=== PATIENT | female | born 1995 | race Two or more races ===

== ENCOUNTER 2021-03-08 03:41 | Emergency (ER) | payer MEDICAID ==
[~2021-03-08] VITALS: Ht 160 cm; Wt 94.9 kg
[2021-03-08 07:09] VITALS: BP 111/70
== END 2021-03-08 07:53 | disposition home or self-care (01) ==
LOC: ED 07:44
DX: U07.1 COVID-19 (principal); J12.82 Pneumonia due to coronavirus disease 2019; R05 Cough; R00.0 Tachycardia, unspecified
CPT/HCPCS: 71045; 93005; 96361; 96374; 99283; J1100; J2060; J7030

== ENCOUNTER 2021-03-09 05:34 | Inpatient (IN) | payer MEDICAID ==
[~2021-03-09] VITALS: Ht 160 cm; Wt 103.8 kg
--- NOTE | 2021-03-09 05:54 | NUR ---
PT PRESENTS TO ER WITH MOTHER AT BEDSIDE, PT STATES SHE HAS BILATERAL FLANK PAIN GOING ON FOR 3 DAYS NOW, PT ALSO COMPLAINING OF LOWER ABDOMINAL PAIN GOING ACROSS HER LOWER ABDOMEN, PT STATES IT IS HARD FOR HER TO URINATE
[2021-03-09] MEDS ORDERED: SODIUM CHLORIDE 0.9% 1,000ML IVBOLUS ONE ×3 (06:00→13:30)
[2021-03-09 06:40] LABS: BASOPHILS % (AUTO) 0 % (0-1); EOSINOPHILS % (AUTO) 0 % (1-7); LYMPHOCYTES % (AUTO) 11 % (22-44); MEAN CORPUSCULAR HEMOGLOBIN 29.2 pg (27.0-34.8); MEAN CORPUSCULAR HGB CONC 33.8 g/dL (32.4-35.8); MEAN PLATELET VOLUME 8.8 fL (7.4-10.4); MONOCYTES % (AUTO) 7 % (2-9); NEUTROPHILS % (AUTO) 82 % (42-75); PLATELET COUNT 291 x10^3/uL (130-400); RED BLOOD COUNT 5.39 x10^6/uL (3.82-5.3)
[2021-03-09 06:55] LABS: ALBUMIN 2.8 g/dL (3.4-5.0); ANION GAP 10 mmol/L (5-15); CALCIUM 7.9 mg/dL (8.5-10.1); CHLORIDE 101 mmol/L (98-107)
--- NOTE | 2021-03-09 07:00 | NUR ---
REPORT RECEIVED CARE ASSUMED. PTS MOTHER AT BEDSIDE.
[2021-03-09 07:04] LABS: ALANINE AMINOTRANSFERASE 43 U/L (12-78); ALKALINE PHOSPHATASE 44 U/L (45-117); BILIRUBIN,TOTAL 0.3 mg/dL (0.2-1.0); CREATININE 0.62 mg/dL (0.55-1.02); TOTAL PROTEIN 6.7 g/dL (6.4-8.2)
[2021-03-09 07:27] LABS: FREE T4 (FREE THYROXINE) 1.24 ng/dL (0.76-1.46)
--- NOTE | 2021-03-09 07:38 | NUR ---
CT DELAY; ONE TECH HERE- HAD TO DO CODE NEURO FIRST
[2021-03-09] MEDS ORDERED: ONDANSETRON 2MG/ML, 2ML IVPush ONE ×2 (08:00→13:30)
[2021-03-09] MEDS ORDERED: HYDROmorphone 2 MG/ML, 1ML IV ONE (08:00)
[2021-03-09] MEDS ORDERED: ONDANSETRON 2MG/ML, 2ML ONE ×2 (08:07→13:07)
[2021-03-09] MEDS ORDERED: HYDROmorphone 2 MG/ML, 1ML ONE (08:07)
--- NOTE | 2021-03-09 08:23 | NUR ---
PT WITH CONSTANT MOANS, RAPID BREATHING/PANTING AT TIMES. "I CANT BREATH, I CANT BREATH, THE PAIN" PT MEDCIATED ORDERED. ST PER MONITOR. HR DECREASED FROM 150 TO 136 AFTER PAIN MEDS. DISCUSSED WITH PT, NEED FOR URINE SPECIMAN. "I CANT PEE. I'M; SO DRY" DISCUSSED WITH PT DOING MC FOR URINE. PT AGREEABLE. PT TO BE PROVIDED WITH LEMON GLYCERIN SWABS FOR "DRY MOUTH" PAIN DECREASED TO 9/10 FROM 04/02/
[2021-03-09 08:56] LABS: MICROSCOPIC INDICATED
--- NOTE | 2021-03-09 10:02 | NUR ---
PT DOZING INTERMITTENTLY, AROUSES TO NAME. PAIN DECREASED TO 6/10ST PER MONITOR. PT WITH C/O MD ALICIA TO BE NOTIFIED. IV INFUSING WITHOUT REDNESS/SWELLING.
--- NOTE | 2021-03-09 11:19 | NUR ---
PT DOZING INTERMITTENTLY, CONT PALE, COOL TO TOUCH. ST PER MONITOR. IV FLUIDS INFUSING WITHOUT REDNESS/SWELLING. PTS MOTHER AT BEDSIDE. WAITING FOR ROOM ASSIGNMENT.
[2021-03-09] MEDS ORDERED: IBUPROFEN 800 MG TABLET PO ONE (11:30)
--- NOTE | 2021-03-09 11:49 | NUR ---
REPORT TO MABLE [facility]D
--- NOTE | 2021-03-09 11:54 | NUR ---
ECHO IN PROCESS THEN PT TO GO TO ROOM 522
[2021-03-09] MEDS ORDERED: ACETAMINOPHEN 325 MG TABLET PO PRN (12:30)
[2021-03-09] MEDS ORDERED: IBUPROFEN 600 MG TABLET PO SCH (12:30)
[2021-03-09] MEDS ORDERED: POLYETHYLENE GLYCOL 17 GM PACKET PO PRN (12:30)
[2021-03-09] MEDS ORDERED: OXYcodone/APAP 5/325MG TABLET PO PRN (12:30)
[2021-03-09] MEDS ORDERED: HYDROmorphone 1 MG/ML, 1ML INJ IV PRN (12:30)
[2021-03-09] MEDS ORDERED: ONDANSETRON ODT 4 MG PO PRN (12:30)
[2021-03-09] MEDS ORDERED: IBUPROFEN 600 MG TABLET PO PRN (12:30)
[2021-03-09] MEDS ORDERED: TAMSULOSIN 0.4 MG CAP.ER.24H PO SCH (13:00)
[2021-03-09] MEDS ORDERED: DOXYCYCLINE 100MG TABLET PO SCH (13:30)
[2021-03-09] MEDS ORDERED: CEFTRIAXONE 1,000 MG in DEXTROSE 5% 50 ML IVPB SCH (13:30)
[2021-03-09 14:17] LABS: HCT (SEDRATE) 43.2 % (34.6-47.8)
[2021-03-09] MEDS: morphine SULFATE 10 MG/ML, 1ML IVPush PRN ×3 (14:28→21:25)
[2021-03-09] MEDS: ENOXAPARIN 40 MG/0.4 ML SQ SCH (14:28)
[2021-03-09] MEDS: COLCHICINE 0.6 MG CAPSULE PO SCH ×2 (14:38→21:00)
[2021-03-09] MEDS: PIPERACILLIN/TAZO 3.375 GM in DEXTROSE 5% 50 ML IV SCH ×2 (14:38→20:23)
[2021-03-09] MEDS: SODIUM CHLORIDE 0.9% 1,000 ML IV SCH (14:51)
[2021-03-09] MEDS ORDERED: PROMETHAZINE 25 MG/ML, 1ML IM PRN (15:00)
[2021-03-09] MEDS: DOXYCYCLINE 100 MG in DEXTROSE 5% 250 ML IV SCH (15:47)
[2021-03-09] MEDS: METOPROLOL TARTRATE 25 MG TAB PO SCH (16:41)
[2021-03-09] MEDS: LINEZOLID PMX 600MG/300ML 300 ML IV SCH (17:24)
[2021-03-09] MEDS ORDERED: GADOTERATE 10 MMOL/20ML SYR ONE (19:22)
[2021-03-09] MEDS ORDERED: FAMOTIDINE 20 MG TABLET PO SCH (21:00)
[2021-03-09] MEDS ORDERED: SODIUM CHLORIDE 0.9%, 500ML IVBOLUS ONE (23:00)
[2021-03-09] MEDS: VASOPRESSIN 20 UNIT in SODIUM CHLORIDE 0.9% 99 ML IV PRN (23:05)
[2021-03-09] MEDS: METOCLOPRAMIDE 5 MG/ML, 2ML IVPush PRN (23:49)
[2021-03-10] MEDS: morphine SULFATE 10 MG/ML, 1ML IVPush PRN ×6 (01:38→21:48)
[2021-03-10] MEDS: COLCHICINE 0.6 MG CAPSULE PO SCH ×2 (01:38→10:36)
[2021-03-10] MEDS: SODIUM CHLORIDE 0.9% 1,000 ML IV SCH ×3 (01:41→21:06)
[2021-03-10] MEDS: NOREPINEPHRINE 8 MG in SODIUM CHLORIDE 0.9% 242 ML IV PRN ×2 (03:26→12:30)
[2021-03-10] MEDS ORDERED: ROCURONIUM 10MG/ML,5ML ONE ×2 (03:34)
[2021-03-10] MEDS ORDERED: PROPOFOL 10 MG/ML, 20ML ONE (03:34)
[2021-03-10] MEDS: PIPERACILLIN/TAZO 3.375 GM in DEXTROSE 5% 50 ML IV SCH ×2 (04:23→10:57)
[2021-03-10] MEDS: DOXYCYCLINE 100 MG in DEXTROSE 5% 250 ML IV SCH ×2 (05:17→16:01)
[2021-03-10] MEDS: LINEZOLID PMX 600MG/300ML 300 ML IV SCH ×2 (06:40→21:06)
[2021-03-10] MEDS: VASOPRESSIN 20 UNIT in SODIUM CHLORIDE 0.9% 99 ML IV PRN ×2 (06:58→14:16)
[2021-03-10 07:29] LABS: BASOPHILS % (AUTO) 0 % (0-1); EOSINOPHILS % (AUTO) 0 % (1-7); LYMPHOCYTES % (AUTO) 7 % (22-44); MEAN CORPUSCULAR HEMOGLOBIN 29.5 pg (27.0-34.8); MEAN CORPUSCULAR HGB CONC 33.2 g/dL (32.4-35.8); MEAN PLATELET VOLUME 9.2 fL (7.4-10.4); MONOCYTES % (AUTO) 6 % (2-9); NEUTROPHILS % (AUTO) 87 % (42-75); PLATELET COUNT 302 x10^3/uL (130-400); RED BLOOD COUNT 5.34 x10^6/uL (3.82-5.3); RED CELL DISTRIBUTION WIDTH 12.8 % (9.6-15.2)
[2021-03-10] MEDS ORDERED: SODIUM CHLORIDE 0.9% 1,000ML IVBOLUS ONE (07:30)
[2021-03-10 07:33] LABS: ALBUMIN 2.2 g/dL (3.4-5.0); ANION GAP 14 mmol/L (5-15); CALCIUM 6.9 mg/dL (8.5-10.1); CHLORIDE 101 mmol/L (98-107); CREATININE 1.34 mg/dL (0.55-1.02)
[2021-03-10 07:43] LABS: ALANINE AMINOTRANSFERASE 3454 U/L (12-78); ALKALINE PHOSPHATASE 44 U/L (45-117); BILIRUBIN,TOTAL 0.5 mg/dL (0.2-1.0); TOTAL PROTEIN 5.7 g/dL (6.4-8.2)
[2021-03-10] MEDS: METOPROLOL TARTRATE 25 MG TAB PO SCH (09:00)
[2021-03-10] MEDS: SENNA/DOCUSATE TABLET PO SCH (09:00)
[2021-03-10] MEDS: METOCLOPRAMIDE 5 MG/ML, 2ML IVPush PRN (10:36)
[2021-03-10 12:50] LABS: ANION GAP 15 mmol/L (5-15); CALCIUM 7.3 mg/dL (8.5-10.1); CHLORIDE 103 mmol/L (98-107); CREATININE 1.39 mg/dL (0.55-1.02)
[2021-03-10] MEDS: ENOXAPARIN 40 MG/0.4 ML SQ SCH (14:15)
[2021-03-10] MEDS: ONDANSETRON 2MG/ML, 2ML IVPush PRN (14:56)
[2021-03-10] MEDS ORDERED: SODIUM CHLORIDE 0.9%, 250ML IVBOLUS ONE (17:30)
[2021-03-10] MEDS: MEROPENEM 1 GM in SODIUM CHLORIDE 0.9% 100 ML IV SCH (18:19)
[2021-03-10] MEDS: DEXAMETHASONE 4 MG/ML, 1ML IVPush SCH (18:19)
[2021-03-10] MEDS ORDERED: LACTATED RINGERS 1,000 ML IVBOLUS ONE (21:30)
[2021-03-11] MEDS: NOREPINEPHRINE 8 MG in SODIUM CHLORIDE 0.9% 242 ML IV PRN ×2 (00:09→11:35)
[2021-03-11] MEDS: METOCLOPRAMIDE 5 MG/ML, 2ML IVPush PRN (00:23)
[2021-03-11] MEDS: VASOPRESSIN 20 UNIT in SODIUM CHLORIDE 0.9% 99 ML IV PRN ×2 (00:26→11:35)
[2021-03-11] MEDS: MEROPENEM 1 GM in SODIUM CHLORIDE 0.9% 100 ML IV SCH ×3 (01:50→17:44)
[2021-03-11] MEDS: morphine SULFATE 10 MG/ML, 1ML IVPush PRN ×2 (02:05→05:04)
[2021-03-11] MEDS: DOXYCYCLINE 100 MG in DEXTROSE 5% 250 ML IV SCH ×2 (04:01→15:37)
[2021-03-11 04:45] LABS: MEAN CORPUSCULAR HEMOGLOBIN 29.2 pg (27.0-34.8); MEAN CORPUSCULAR HGB CONC 33.1 g/dL (32.4-35.8); PLATELET COUNT 256 x10^3/uL (130-400); RED BLOOD COUNT 5.27 x10^6/uL (3.82-5.3)
[2021-03-11 04:50] LABS: ALBUMIN 1.9 g/dL (3.4-5.0); ANION GAP 13 mmol/L (5-15); CALCIUM 6.6 mg/dL (8.5-10.1); CHLORIDE 103 mmol/L (98-107)
[2021-03-11 05:08] LABS: ALANINE AMINOTRANSFERASE 3730 U/L (12-78); ALKALINE PHOSPHATASE 50 U/L (45-117); CREATININE 1.76 mg/dL (0.55-1.02); TOTAL PROTEIN 5.2 g/dL (6.4-8.2)
[2021-03-11 05:35] LABS: BAND#(MANUAL) 1.13 x10^3/uL; BANDS%(MANUAL) 5 % (0-7); LYMPHS% (MANUAL) 4 % (22-44); MONOS#(MANUAL) 1.13 x10^3/uL (0.3-2.7); MONOS% (MANUAL) 5 % (2-9); MYELOCYTES# (MANUAL) 0.23 x10^3/uL (0-0); MYELOCYTES% (MANUAL) 1 % (0-0); SEG#(MANUAL) 19.13 x10^3/uL (1.8-6.8); SEGS% (MANUAL) 85 % (42-75)
[2021-03-11 05:38] LABS: <PLATELET ESTIMATE> ADEQUATE; <RBC MORPHOLOGY> NORMAL; LARGE PLATELETS 1+
[2021-03-11] MEDS: SODIUM CHLORIDE 0.9% 1,000 ML IV SCH (08:00)
[2021-03-11] MEDS: SENNA/DOCUSATE TABLET PO SCH (10:16)
[2021-03-11] MEDS: OXYcodone IR 5MG TABLET PO PRN ×2 (10:16→20:19)
[2021-03-11] MEDS: LINEZOLID PMX 600MG/300ML 300 ML IV SCH ×2 (10:16→20:18)
[2021-03-11] MEDS: DEXAMETHASONE 4 MG/ML, 1ML IVPush SCH (10:16)
[2021-03-11] MEDS: SODIUM BICARBONATE 8.4% 150 MEQ in DEXTROSE 5% 1,000 ML IV SCH (11:41)
[2021-03-11 13:25] LABS: ANION GAP 12 mmol/L (5-15); CHLORIDE 111 mmol/L (98-107); CREATININE 1.29 mg/dL (0.55-1.02)
[2021-03-11 13:29] LABS: CALCIUM 5.3 mg/dL (8.5-10.1)
[2021-03-11] MEDS: ENOXAPARIN 40 MG/0.4 ML SQ SCH (13:34)
[2021-03-11 13:39] LABS: D-DIMER 1.4 ug/mlFEU (0.00-0.52); INTERNATIONAL NORMALIZED RATIO 1.74 (0.93-1.1); PROTHROMBIN TIME 18.1 Seconds (9.6-11.5)
[2021-03-11] MEDS: POTASSIUM CHLORIDE 20 MEQ TAB.ER.PRT PO SCH ×2 (15:37→20:18)
[2021-03-11] MEDS ORDERED: CALCIUM CHLORIDE 13.6 MEQ in SODIUM CHLORIDE 0.9% 100 ML IV ONE (18:00)
[2021-03-11] MEDS ORDERED: CALCIUM CHLORIDE 10%, 10ML SYR IVPush ONE (18:00)
[2021-03-11] MEDS: ONDANSETRON 2MG/ML, 2ML IVPush PRN (20:30)
[2021-03-12] MEDS: SODIUM BICARBONATE 8.4% 150 MEQ in DEXTROSE 5% 1,000 ML IV SCH ×2 (01:50→17:34)
[2021-03-12] MEDS: ONDANSETRON 2MG/ML, 2ML IVPush PRN ×2 (02:26→22:35)
[2021-03-12] MEDS: OXYcodone IR 5MG TABLET PO PRN ×4 (02:27→14:02)
[2021-03-12] MEDS: MEROPENEM 1 GM in SODIUM CHLORIDE 0.9% 100 ML IV SCH ×3 (02:34→17:34)
[2021-03-12] MEDS: DOXYCYCLINE 100 MG in DEXTROSE 5% 250 ML IV SCH ×2 (03:42→15:09)
[2021-03-12 05:33] LABS: MEAN CORPUSCULAR HEMOGLOBIN 28.9 pg (27.0-34.8); MEAN CORPUSCULAR HGB CONC 33.4 g/dL (32.4-35.8); MEAN PLATELET VOLUME 8.8 fL (7.4-10.4); PLATELET COUNT 284 x10^3/uL (130-400); RED BLOOD COUNT 4.91 x10^6/uL (3.82-5.3); RED CELL DISTRIBUTION WIDTH 12.9 % (9.6-15.2)
[2021-03-12 05:38] LABS: ANION GAP 10 mmol/L (5-15); CALCIUM 7.7 mg/dL (8.5-10.1); CHLORIDE 101 mmol/L (98-107)
[2021-03-12 05:48] LABS: ALANINE AMINOTRANSFERASE 2918 U/L (12-78); ALKALINE PHOSPHATASE 76 U/L (45-117); BILIRUBIN,TOTAL 1.1 mg/dL (0.2-1.0); TOTAL PROTEIN 5.2 g/dL (6.4-8.2)
[2021-03-12 06:09] LABS: BANDS%(MANUAL) 2 % (0-7); EOS#(MANUAL) 0.25 x10^3/uL (0.0-0.4); EOS% (MANUAL) 1 % (1-7); LYMPH#(MANUAL) 0.25 x10^3/uL (1-3.4); LYMPHS% (MANUAL) 1 % (22-44); MONOS% (MANUAL) 4 % (2-9); SEG#(MANUAL) 22.91 x10^3/uL (1.8-6.8); SEGS% (MANUAL) 92 % (42-75)
[2021-03-12 06:10] LABS: <PLATELET ESTIMATE> ADEQUATE; <PLT MORPHOLOGY> NORMAL PLT MORPH; POLYCHROMASIA 1+
[2021-03-12] MEDS: SENNA/DOCUSATE TABLET PO SCH (09:00)
[2021-03-12] MEDS: DEXAMETHASONE 4 MG/ML, 1ML IVPush SCH (11:12)
[2021-03-12] MEDS: LINEZOLID PMX 600MG/300ML 300 ML IV SCH (11:49)
[2021-03-12] MEDS ORDERED: CALCIUM CHLORIDE 10%, 10ML SYR IVPush ONE (13:00)
[2021-03-12] MEDS: ENOXAPARIN 40 MG/0.4 ML SQ SCH (14:01)
[2021-03-12 19:53] VITALS: BP 129/78
[2021-03-12] MEDS: MELATONIN 5 MG TABLET PO PRN (22:36)
[2021-03-13] MEDS: OXYcodone IR 5MG TABLET PO PRN ×2 (01:13→21:58)
[2021-03-13] MEDS: MEROPENEM 1 GM in SODIUM CHLORIDE 0.9% 100 ML IV SCH ×3 (01:50→18:47)
[2021-03-13 02:13] LABS: MEAN CORPUSCULAR HEMOGLOBIN 29.5 pg (27.0-34.8); MEAN CORPUSCULAR HGB CONC 33.7 g/dL (32.4-35.8); MEAN PLATELET VOLUME 8.9 fL (7.4-10.4); PLATELET COUNT 261 x10^3/uL (130-400); RED BLOOD COUNT 4.58 x10^6/uL (3.82-5.3); RED CELL DISTRIBUTION WIDTH 13.4 % (9.6-15.2)
[2021-03-13 02:26] LABS: D-DIMER 3.15 ug/mlFEU (0.00-0.52); INTERNATIONAL NORMALIZED RATIO 1.32 (0.93-1.1); PROTHROMBIN TIME 13.9 Seconds (9.6-11.5)
[2021-03-13 02:46] LABS: ALBUMIN 1.9 g/dL (3.4-5.0); ANION GAP 8 mmol/L (5-15); CALCIUM 7.4 mg/dL (8.5-10.1); CHLORIDE 100 mmol/L (98-107); CREATININE 1.33 mg/dL (0.55-1.02)
[2021-03-13 02:54] LABS: ALANINE AMINOTRANSFERASE 2600 U/L (12-78); ALKALINE PHOSPHATASE 100 U/L (45-117); BILIRUBIN,TOTAL 1.2 mg/dL (0.2-1.0); TOTAL PROTEIN 5.3 g/dL (6.4-8.2)
[2021-03-13 03:02] LABS: BAND#(MANUAL) 2.23 x10^3/uL; BANDS%(MANUAL) 9 % (0-7); LYMPH#(MANUAL) 0.74 x10^3/uL (1-3.4); LYMPHS% (MANUAL) 3 % (22-44); MONOS#(MANUAL) 1.98 x10^3/uL (0.3-2.7); MONOS% (MANUAL) 8 % (2-9); MYELOCYTES# (MANUAL) 0.25 x10^3/uL (0-0); MYELOCYTES% (MANUAL) 1 % (0-0); SEG#(MANUAL) 19.59 x10^3/uL (1.8-6.8); SEGS% (MANUAL) 79 % (42-75)
[2021-03-13 03:03] LABS: ANISOCYTOSIS 1+; POLYCHROMASIA 1+; SCHISTOCYTES 1+
[2021-03-13 03:04] LABS: <PLATELET ESTIMATE> ADEQUATE; <PLT MORPHOLOGY> NORMAL PLT MORPH
[2021-03-13] MEDS: DOXYCYCLINE 100 MG in DEXTROSE 5% 250 ML IV SCH ×2 (03:18→15:18)
[2021-03-13] MEDS: SENNA/DOCUSATE TABLET PO SCH (07:58)
[2021-03-13] MEDS: DEXAMETHASONE 4 MG/ML, 1ML IVPush SCH (08:27)
[2021-03-13] MEDS: CHOLECALCIFEROL 1,000 UNIT TABLET PO SCH (11:17)
[2021-03-13] MEDS: ASCORBIC ACID 500 MG TABLET PO SCH ×2 (11:17→21:15)
[2021-03-13] MEDS: ZINC SULFATE 220 MG CAPSULE PO SCH (11:17)
[2021-03-13 15:10] VITALS: BP 116/87
[2021-03-13] MEDS: ENOXAPARIN 40 MG/0.4 ML SQ SCH (15:18)
[2021-03-13 20:07] VITALS: BP 103/71
[2021-03-13] MEDS: MELATONIN 5 MG TABLET PO PRN (21:15)
[2021-03-14 00:34] VITALS: BP 97/64
[2021-03-14] MEDS: MEROPENEM 1 GM in SODIUM CHLORIDE 0.9% 100 ML IV SCH ×3 (02:11→17:50)
[2021-03-14] MEDS: DOXYCYCLINE 100 MG in DEXTROSE 5% 250 ML IV SCH ×2 (03:51→15:43)
[2021-03-14] MEDS: DEXAMETHASONE 4 MG/ML, 1ML IVPush SCH (08:42)
[2021-03-14] MEDS: ASCORBIC ACID 500 MG TABLET PO SCH ×2 (08:42→21:56)
[2021-03-14] MEDS: SENNA/DOCUSATE TABLET PO SCH (08:42)
[2021-03-14] MEDS: CHOLECALCIFEROL 1,000 UNIT TABLET PO SCH (08:42)
[2021-03-14] MEDS: ZINC SULFATE 220 MG CAPSULE PO SCH (08:43)
[2021-03-14 08:48] VITALS: BP 97/62
[2021-03-14 13:11] VITALS: BP 93/62
[2021-03-14] MEDS: ENOXAPARIN 40 MG/0.4 ML SQ SCH (13:11)
[2021-03-14] MEDS: OXYcodone IR 5MG TABLET PO PRN ×2 (17:50→21:56)
[2021-03-14 19:56] VITALS: BP 134/74
[2021-03-15 01:10] VITALS: BP 119/79
[2021-03-15] MEDS: MEROPENEM 1 GM in SODIUM CHLORIDE 0.9% 100 ML IV SCH ×3 (01:48→18:18)
[2021-03-15 06:52] LABS: MEAN CORPUSCULAR HEMOGLOBIN 29.1 pg (27.0-34.8); MEAN CORPUSCULAR HGB CONC 33.1 g/dL (32.4-35.8); MEAN PLATELET VOLUME 7.7 fL (7.4-10.4); PLATELET COUNT 279 x10^3/uL (130-400); RED BLOOD COUNT 4.06 x10^6/uL (3.82-5.3); RED CELL DISTRIBUTION WIDTH 13.6 % (9.6-15.2)
[2021-03-15 07:04] LABS: CALCIUM 7.6 mg/dL (8.5-10.1); CHLORIDE 105 mmol/L (98-107)
[2021-03-15 07:19] LABS: ALANINE AMINOTRANSFERASE 1347 U/L (12-78); ALBUMIN 2.1 g/dL (3.4-5.0); ALKALINE PHOSPHATASE 105 U/L (45-117); ANION GAP 8 mmol/L (5-15); BILIRUBIN,TOTAL 0.8 mg/dL (0.2-1.0); CREATININE 0.83 mg/dL (0.55-1.02); TOTAL PROTEIN 5.2 g/dL (6.4-8.2)
[2021-03-15 07:24] LABS: BAND#(MANUAL) 0.88 x10^3/uL; BANDS%(MANUAL) 4 % (0-7); LYMPH#(MANUAL) 1.54 x10^3/uL (1-3.4); LYMPHS% (MANUAL) 7 % (22-44); METAMYELOCYTES# (MANUAL) 0.22 x10^3/uL (0-0); METAMYELOCYTES% (MANUAL) 1 % (0-1); MONOS#(MANUAL) 0.44 x10^3/uL (0.3-2.7); MONOS% (MANUAL) 2 % (2-9); SEG#(MANUAL) 18.92 x10^3/uL (1.8-6.8); SEGS% (MANUAL) 86 % (42-75)
[2021-03-15 07:25] LABS: <PLATELET ESTIMATE> ADEQUATE; <PLT MORPHOLOGY> NORMAL PLT MORPH; ANISOCYTOSIS 1+; OVALOCYTES 1+; POLYCHROMASIA 1+
[2021-03-15 07:49] VITALS: BP 109/75
[2021-03-15] MEDS: FUROSEMIDE 20 MG/2 ML IV SCH ×2 (08:36→18:18)
[2021-03-15] MEDS: SENNA/DOCUSATE TABLET PO SCH (08:36)
[2021-03-15] MEDS: DEXAMETHASONE 4 MG/ML, 1ML IVPush SCH (08:36)
[2021-03-15] MEDS: ENOXAPARIN 40 MG/0.4 ML SQ SCH ×2 (08:37→21:28)
[2021-03-15] MEDS: ZINC SULFATE 220 MG CAPSULE PO SCH (10:02)
[2021-03-15] MEDS: CHOLECALCIFEROL 1,000 UNIT TABLET PO SCH (10:02)
[2021-03-15] MEDS: ASCORBIC ACID 500 MG TABLET PO SCH ×2 (10:02→21:28)
[2021-03-15 13:38] VITALS: BP 103/64
[2021-03-15 20:22] VITALS: BP 128/73
[2021-03-15] MEDS: OXYcodone IR 5MG TABLET PO PRN (21:41)
[2021-03-15 21:42] VITALS: BP 109/72
[2021-03-16 01:32] VITALS: BP 118/71
[2021-03-16] MEDS: MEROPENEM 1 GM in SODIUM CHLORIDE 0.9% 100 ML IV SCH ×3 (02:14→17:21)
[2021-03-16 06:06] LABS: MEAN CORPUSCULAR HEMOGLOBIN 29.6 pg (27.0-34.8); MEAN CORPUSCULAR HGB CONC 33.3 g/dL (32.4-35.8); MEAN PLATELET VOLUME 7.8 fL (7.4-10.4); PLATELET COUNT 284 x10^3/uL (130-400); RED BLOOD COUNT 4.11 x10^6/uL (3.82-5.3); RED CELL DISTRIBUTION WIDTH 13.6 % (9.6-15.2)
[2021-03-16 06:19] LABS: ANION GAP 5 mmol/L (5-15); CALCIUM 7.6 mg/dL (8.5-10.1); CHLORIDE 104 mmol/L (98-107); CREATININE 0.72 mg/dL (0.55-1.02)
[2021-03-16 06:27] LABS: D-DIMER 14.05 ug/mlFEU (0.00-0.52)
[2021-03-16 06:28] LABS: ALANINE AMINOTRANSFERASE 1045 U/L (12-78); ALKALINE PHOSPHATASE 105 U/L (45-117); BILIRUBIN,TOTAL 0.8 mg/dL (0.2-1.0); TOTAL PROTEIN 5.2 g/dL (6.4-8.2)
[2021-03-16 06:33] LABS: ANISOCYTOSIS 1+; BANDS%(MANUAL) 2 % (0-7); METAMYELOCYTES# (MANUAL) 0.25 x10^3/uL (0-0); METAMYELOCYTES% (MANUAL) 1 % (0-1); MONOS#(MANUAL) 2.25 x10^3/uL (0.3-2.7); MONOS% (MANUAL) 9 % (2-9); POLYCHROMASIA 1+; SEGS% (MANUAL) 88 % (42-75)
[2021-03-16 06:34] LABS: <PLATELET ESTIMATE> ADEQUATE; <PLT MORPHOLOGY> NORMAL PLT MORPH
[2021-03-16 07:30] VITALS: BP 129/87
[2021-03-16] MEDS: SENNA/DOCUSATE TABLET PO SCH (09:00)
[2021-03-16] MEDS: ENOXAPARIN 40 MG/0.4 ML SQ SCH ×2 (09:12→22:12)
[2021-03-16] MEDS: FUROSEMIDE 20 MG/2 ML IV SCH ×2 (09:13→17:21)
[2021-03-16] MEDS: CHOLECALCIFEROL 1,000 UNIT TABLET PO SCH (09:13)
[2021-03-16] MEDS: DEXAMETHASONE 4 MG/ML, 1ML IVPush SCH (09:13)
[2021-03-16] MEDS: ASCORBIC ACID 500 MG TABLET PO SCH ×2 (09:13→22:12)
[2021-03-16] MEDS: ZINC SULFATE 220 MG CAPSULE PO SCH (09:13)
[2021-03-16 15:12] VITALS: BP 101/66
[2021-03-16 19:31] VITALS: BP 118/77
[2021-03-16 22:10] VITALS: BP 113/75
[2021-03-16] MEDS: OXYcodone IR 5MG TABLET PO PRN (22:12)
[2021-03-17 00:55] VITALS: BP 106/61
[2021-03-17] MEDS: MEROPENEM 1 GM in SODIUM CHLORIDE 0.9% 100 ML IV SCH ×3 (02:44→17:38)
[2021-03-17 07:38] VITALS: BP 106/63
[2021-03-17] MEDS: SENNA/DOCUSATE TABLET PO SCH (09:00)
[2021-03-17] MEDS: ASCORBIC ACID 500 MG TABLET PO SCH ×2 (10:04→22:13)
[2021-03-17] MEDS: CHOLECALCIFEROL 1,000 UNIT TABLET PO SCH (10:04)
[2021-03-17] MEDS: ZINC SULFATE 220 MG CAPSULE PO SCH (10:04)
[2021-03-17] MEDS: OXYcodone IR 5MG TABLET PO PRN (10:04)
[2021-03-17] MEDS: FUROSEMIDE 20 MG/2 ML IV SCH ×2 (10:05→17:37)
[2021-03-17] MEDS: DEXAMETHASONE 4 MG/ML, 1ML IVPush SCH (10:05)
[2021-03-17] MEDS: ENOXAPARIN 40 MG/0.4 ML SQ SCH ×2 (10:05→22:13)
[2021-03-17] MEDS: ONDANSETRON 2MG/ML, 2ML IVPush PRN (10:05)
[2021-03-17] MEDS ORDERED: OXYcodone IR 5MG TABLET PO PRN (12:00)
[2021-03-17 12:56] LABS: ANION GAP 4 mmol/L (5-15); CHLORIDE 99 mmol/L (98-107); CREATININE 0.64 mg/dL (0.55-1.02)
[2021-03-17 15:40] VITALS: BP 108/73
[2021-03-17 18:56] LABS: CLOSTRIDIUM DIFFICILE ANTIGEN NEGATIVE; CLOSTRIDIUM DIFFICILE TOXIN NEGATIVE (Negative)
[2021-03-17 20:00] VITALS: BP 108/69
[2021-03-18 00:36] VITALS: BP 106/72
[2021-03-18 05:50] LABS: CHLORIDE 102 mmol/L (98-107)
[2021-03-18 05:52] LABS: MEAN CORPUSCULAR HEMOGLOBIN 29.2 pg (27.0-34.8); MEAN PLATELET VOLUME 7.2 fL (7.4-10.4); PLATELET COUNT 276 x10^3/uL (130-400); RED BLOOD COUNT 4.06 x10^6/uL (3.82-5.3); RED CELL DISTRIBUTION WIDTH 13.3 % (9.6-15.2)
[2021-03-18 06:02] LABS: ALANINE AMINOTRANSFERASE 644 U/L (12-78); ALKALINE PHOSPHATASE 85 U/L (45-117); ANION GAP 3 mmol/L (5-15); BILIRUBIN, DIRECT 0.2 mg/dL (0.1-0.2); BILIRUBIN,INDIRECT 0.6 mg/dL (0.0-2.0); BILIRUBIN,TOTAL 0.8 mg/dL (0.2-1.0); CALCIUM 7.5 mg/dL (8.5-10.1); CREATININE 0.51 mg/dL (0.55-1.02)
[2021-03-18 07:00] LABS: BAND#(MANUAL) 0.52 x10^3/uL; BANDS%(MANUAL) 3 % (0-7); LYMPHS% (MANUAL) 4 % (22-44); MONOS% (MANUAL) 4 % (2-9); MYELOCYTES# (MANUAL) 0.17 x10^3/uL (0-0); MYELOCYTES% (MANUAL) 1 % (0-0); SEG#(MANUAL) 15.31 x10^3/uL (1.8-6.8); SEGS% (MANUAL) 88 % (42-75)
[2021-03-18 07:01] LABS: <PLATELET ESTIMATE> ADEQUATE; <PLT MORPHOLOGY> NORMAL PLT MORPH; <RBC MORPHOLOGY> NORMAL; ANISOCYTOSIS 1+; POLYCHROMASIA 1+
[2021-03-18] MEDS: SENNA/DOCUSATE TABLET PO SCH (09:00)
[2021-03-18 11:03] VITALS: BP 110/73
[2021-03-18] MEDS: CHOLECALCIFEROL 1,000 UNIT TABLET PO SCH (11:07)
[2021-03-18] MEDS: FUROSEMIDE 20 MG/2 ML IV SCH ×2 (11:07→17:40)
[2021-03-18] MEDS: ZINC SULFATE 220 MG CAPSULE PO SCH (11:07)
[2021-03-18] MEDS: ASCORBIC ACID 500 MG TABLET PO SCH ×2 (11:07→21:56)
[2021-03-18] MEDS: ENOXAPARIN 40 MG/0.4 ML SQ SCH ×2 (11:07→21:57)
[2021-03-18] MEDS: DEXAMETHASONE 4 MG/ML, 1ML IVPush SCH (11:07)
[2021-03-18 12:51] VITALS: BP 110/75
[2021-03-18] MEDS: LACTOBACILLUS CHEW TABLET PO SCH ×2 (17:40→21:57)
[2021-03-18 20:00] VITALS: BP 103/64
[2021-03-19 01:41] VITALS: BP 111/72
[2021-03-19 05:42] LABS: ALANINE AMINOTRANSFERASE 605 U/L (12-78); ANION GAP 5 mmol/L (5-15); CALCIUM 7.6 mg/dL (8.5-10.1); CHLORIDE 102 mmol/L (98-107); CREATININE 0.51 mg/dL (0.55-1.02)
[2021-03-19 05:44] LABS: ALKALINE PHOSPHATASE 99 U/L (45-117); BILIRUBIN,TOTAL 0.8 mg/dL (0.2-1.0); TOTAL PROTEIN 5.1 g/dL (6.4-8.2)
[2021-03-19 06:48] LABS: MEAN CORPUSCULAR HEMOGLOBIN 29.4 pg (27.0-34.8); MEAN CORPUSCULAR HGB CONC 33.1 g/dL (32.4-35.8); MEAN PLATELET VOLUME 7.8 fL (7.4-10.4); PLATELET COUNT 290 x10^3/uL (130-400); RED BLOOD COUNT 4.19 x10^6/uL (3.82-5.3); RED CELL DISTRIBUTION WIDTH 13.4 % (9.6-15.2)
[2021-03-19] MEDS ORDERED: CHOL10003 PO (07:14)
[2021-03-19] MEDS ORDERED: ZINC220C8 PO (07:14)
[2021-03-19] MEDS ORDERED: ASCO500T9 PO (07:14)
[2021-03-19] MEDS ORDERED: ACID1TAB7 PO (07:14)
[2021-03-19] MEDS ORDERED: ASPI81TA45 PO (07:14)
[2021-03-19] MEDS ORDERED: ONDA4TAB7 PO (07:14)
[2021-03-19 07:20] LABS: BAND#(MANUAL) 0.33 x10^3/uL; BANDS%(MANUAL) 2 % (0-7); EOS#(MANUAL) 0.33 x10^3/uL (0.0-0.4); EOS% (MANUAL) 2 % (1-7); SEG#(MANUAL) 12.45 x10^3/uL (1.8-6.8); SEGS% (MANUAL) 75 % (42-75)
[2021-03-19 07:21] LABS: <PLATELET ESTIMATE> ADEQUATE; <PLT MORPHOLOGY> NORMAL PLT MORPH; <RBC MORPHOLOGY> NORMAL; LYMPH#(MANUAL) 1.99 x10^3/uL (1-3.4); LYMPHS% (MANUAL) 12 % (22-44); MONOS#(MANUAL) 1.49 x10^3/uL (0.3-2.7); MONOS% (MANUAL) 9 % (2-9)
[2021-03-19 07:40] VITALS: BP 108/70
[2021-03-19] MEDS: LACTOBACILLUS CHEW TABLET PO SCH ×3 (08:58→22:13)
[2021-03-19] MEDS: ENOXAPARIN 40 MG/0.4 ML SQ SCH ×2 (08:58→22:14)
[2021-03-19] MEDS: ZINC SULFATE 220 MG CAPSULE PO SCH (08:59)
[2021-03-19] MEDS: DEXAMETHASONE 4 MG/ML, 1ML IVPush SCH (08:59)
[2021-03-19] MEDS: FUROSEMIDE 20 MG/2 ML IV SCH ×2 (08:59→18:54)
[2021-03-19] MEDS: CHOLECALCIFEROL 1,000 UNIT TABLET PO SCH (08:59)
[2021-03-19] MEDS: ASCORBIC ACID 500 MG TABLET PO SCH ×2 (08:59→22:14)
[2021-03-19] MEDS: SENNA/DOCUSATE TABLET PO SCH (09:00)
[2021-03-19] MEDS: METOPROLOL TARTRATE 25 MG TAB PO SCH ×2 (11:45→18:54)
[2021-03-19 15:58] VITALS: BP 117/71
[2021-03-19 22:12] VITALS: BP 110/73
[2021-03-20 01:42] VITALS: BP 107/67
[2021-03-20] MEDS: METOPROLOL TARTRATE 25 MG TAB PO SCH (06:17)
[2021-03-20] MEDS: SENNA/DOCUSATE TABLET PO SCH (07:44)
[2021-03-20] MEDS: FUROSEMIDE 20 MG/2 ML IV SCH (07:46)
[2021-03-20] MEDS: ENOXAPARIN 40 MG/0.4 ML SQ SCH (07:46)
[2021-03-20] MEDS: LACTOBACILLUS CHEW TABLET PO SCH (07:46)
[2021-03-20 08:37] VITALS: BP 105/71
[2021-03-20] MEDS ORDERED: METO25TA35 PO (10:43)
[2021-03-20] MEDS: ASCORBIC ACID 500 MG TABLET PO SCH (11:41)
[2021-03-20] MEDS: CHOLECALCIFEROL 1,000 UNIT TABLET PO SCH (11:41)
[2021-03-20] MEDS: ZINC SULFATE 220 MG CAPSULE PO SCH (11:41)
== END 2021-03-20 12:15 | disposition home or self-care (01) | DRG 871 ==
LOC: ED 07:14 → EDIP 11:00 → SUATTDRO 11:05 → 5SO 12:51 → ICU 13:43 → 5SO 03-13 13:50
PROVIDERS: ADMIT Family Medicine; ATTEND Family Medicine
PROC: 0T9B70Z Drainage of Bladder with Drainage Device, Via Natural or Artificial Opening (ICD-10-PCS; 2021-03-09)
PROC: 05H333Z Insertion of Infusion Device into Right Innominate Vein, Percutaneous Approach (ICD-10-PCS; principal; 2021-03-10)
PROC: B54MZZA Ultrasonography of Right Upper Extremity Veins, Guidance (ICD-10-PCS; 2021-03-10)
PROC: 5A0945A Assistance with Respiratory Ventilation, 24-96 Consecutive Hours, High Flow/Velocity Cannula (ICD-10-PCS; 2021-03-12)
DX: A41.9 Sepsis, unspecified organism (principal); U07.1 COVID-19; J12.82 Pneumonia due to coronavirus disease 2019; N17.0 Acute kidney failure with tubular necrosis; J96.01 Acute respiratory failure with hypoxia; R65.21 Severe sepsis with septic shock; K72.00 Acute and subacute hepatic failure without coma; I21.A1 Myocardial infarction type 2; E87.2 Acidosis; I30.9 Acute pericarditis, unspecified; E87.1 Hypo-osmolality and hyponatremia; N20.0 Calculus of kidney; E88.09 Other disorders of plasma-protein metabolism, not elsewhere classified; E87.5 Hyperkalemia; Z87.891 Personal history of nicotine dependence
CPT/HCPCS: 36415; 36573; 36600; 71045; 72158; 74177; 76700; 80048; 80053; 80076; 81001; 82330; 82533; 82728; 82803; 82962; 83605; 84145; 84439; 84443; 84484; 84703; 85025; 85379; 85384; 85610; 85651; 86140; 87040; 87081; 87086; 87324; 93005; 93308; 93321; 93325; 96360; G0378; J1100; J1170; J1650; J2020; J2185; J2405; J2543; J2704; J7060; J7070; A9575; C1751; J1940; J2270; J2765; J7030; J7040; J7050; J7120